=== PATIENT | male | born 1990 | race Hispanic/Latino ===

== ENCOUNTER 2020-04-16 20:59 | Emergency (ER) | payer SELFPAY ==
[2020-04-16] MEDS ORDERED: ONDANSETRON HCL 4 MG/2 ML VIAL ONE (21:19)
[2020-04-16] MEDS ORDERED: LIDOCAINE HCL 1% 20 ML VIAL ONE (21:20)
[2020-04-16] MEDS ORDERED: MORPHINE SULFATE 4 MG/1ML SYG ONE (21:20)
[2020-04-16 21:41] LABS: BASOPHILS % (AUTO) 0.5 % (0.0-5.0); EOSINOPHILS % (AUTO) 2.5 % (0.0-8.0); HEMATOCRIT 42.9 % (42-54); LYMPHOCYTES % (AUTO) 20.7 % (21.0-51.0); MEAN CORPUSCULAR HEMOGLOBIN 29.4 pg (27.0-33.0); MEAN CORPUSCULAR HGB CONC 34.3 g/dL (32.0-36.0); MEAN CORPUSCULAR VOLUME 85.8 fL (79-99); MONOCYTES % (AUTO) 8.5 % (3.0-13.0); NEUTROPHILS % (AUTO) 67.2 % (40.0-77.0); PLATELET COUNT (AUTO) 244 K/uL (130-400); RED CELL DISTRIBUTION WIDTH 12.6 % (11.0-15.5); WHITE BLOOD COUNT (AUTO) 12.2 K/uL (4.8-10.8)
[2020-04-16 21:54] LABS: CREATININE 1.1 mg/dL (0.5-1.5); POTASSIUM 3.5 mmol/L (3.5-5.1)
[2020-04-16 21:58] LABS: BILIRUBIN,TOTAL 0.3 mg/dL (0.2-1.0); CRP QUANTITATIVE 1.5 mg/L (0.00-9.0); TOTAL PROTEIN, SERUM 7.3 g/dL (6.0-8.3)
[2020-04-16] MEDS ORDERED: KETOROLAC TROMETHAMINE 30MG/ML ONE (22:43)
[2020-04-16 22:50] LABS: ERYTHROCYTE SEDIMENTATION RATE 5 MM/HR (0-15)
== END 2020-04-16 23:26 | disposition home or self-care (01) ==
LOC: EDH 20:59
DX: M25.061 Hemarthrosis, right knee (principal); Z72.0 Tobacco use
CPT/HCPCS: 20610; 36415; 73562; 80053; 85025; 85651; 86140; 96374; 96375; 99284; J1885; J2270; J2405